=== PATIENT | female | born 1990 | race Caucasian/White ===

== ENCOUNTER 2016-11-09 21:31 | Emergency (ER) | payer SELFPAY ==
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
[2016-11-09 23:17] VITALS: BP 118/81
--- NOTE | 2016-11-10 11:24 | CR ---
EXAM DATE: 11/09/16 PATIENT'S AGE: 26 Patient: MICHA MANNING Facility: [place], [place] Site . Site : 1990 Study: XRay Knee [id number]/[id number] 10:29:33 PM Ordering Physician: Doctor Shoemaker Final Report: Indication: Pain. Grinding. No injury. Technique: Right knee three views. Comparison: None. Findings: No acute fracture or dislocation. No additional osseous abnormality. Soft tissues as imaged are unremarkable. Impression: No acute osseous abnormality. Dictated by Josh Otto MD @ 11/09/2016 10:49:31 PM Dictated by: Josh Otto MD @ 11/09/2016 22:49:41 (Electronic Signature) Report Signed by Proxy and Original Signed Document filed in the Medical Record. MTDD
== END 2016-11-09 23:12 | disposition home or self-care (01) ==
LOC: MW.ED 21:31
DX: M25.561 Pain in right knee (principal); B37.3 Candidiasis of vulva and vagina
CPT/HCPCS: 73562-26-RT; 73562-RT; 99283

== ENCOUNTER 2016-11-16 19:02 | Emergency (ER) | payer SELFPAY ==
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
[2016-11-16 20:17] VITALS: BP 137/71
== END 2016-11-16 20:17 | disposition home or self-care (01) ==
LOC: MW.ED 19:02
DX: N39.0 Urinary tract infection, site not specified (principal); J45.909 Unspecified asthma, uncomplicated; F17.210 Nicotine dependence, cigarettes, uncomplicated
CPT/HCPCS: 81001; 99283

== ENCOUNTER 2016-11-26 03:36 | Emergency (ER) | payer SELFPAY ==
[2016-11-26] MEDS ORDERED: Ketorolac 60 MG/2 ML SDV IM ONE (03:50)
[2016-11-26] MEDS ORDERED: Penicillin V Potassium 500 MG Tab PO STA (03:50)
[2016-11-26] MEDS ORDERED: ALPRAZolam 0.25 MG Tab PO ONE (03:50)
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
[2016-11-26 04:27] VITALS: BP 131/84
== END 2016-11-26 04:27 | disposition home or self-care (01) ==
LOC: MW.ED 03:36
DX: J02.0 Streptococcal pharyngitis (principal); F41.9 Anxiety disorder, unspecified; J45.909 Unspecified asthma, uncomplicated; F17.210 Nicotine dependence, cigarettes, uncomplicated
CPT/HCPCS: 99282; A9270; J1885; 99283

== ENCOUNTER 2016-12-30 14:37 | Emergency (ER) | payer SELFPAY ==
[2016-12-30] MEDS ORDERED: Sodium Chloride 0.9% 10 ML Syringe FLUSH PRN (15:23)
[2016-12-30] MEDS ORDERED: Sodium Chloride 0.9% 2.5 ML Syringe FLUSH PRN (15:23)
[2016-12-30] MEDS ORDERED: Albuterol/Ipratropium 3.0-0.5 MG/3 ML Neb Soln NEB ONE ×2 (15:24→15:49)
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
[2016-12-30 16:10] LABS: CHLORIDE,CL 108 mmol/L (98-110); SODIUM,NA 141 mmol/L (136-146)
--- NOTE | 2016-12-30 16:19 | CR ---
EXAMINATION: Two-view chest (PA and Lateral views). HISTORY: Shortness of breath. FINDINGS: The trachea is midline. The cardiomediastinal silhouette is within normal limits. No pulmonary infil trates, effusions or pneumothorax. Osseous structures appear unremarkable. IMPRESSION: No acute cardiopulmonary process.
[2016-12-30] MEDS ORDERED: prednisoLONE Soln 15 MG/5 ML UD Cup PO ONE (16:22)
[2016-12-30] MEDS ORDERED: cefTRIAXone 1 GM in Premix Bag 1 BAG IV ONE (16:24)
[2016-12-30] MEDS ORDERED: cefTRIAXone 1,000 MG in Lidocaine 1% 4 ML IM ONE (16:27)
[2016-12-30 17:24] VITALS: BP 117/75
== END 2016-12-30 17:15 | disposition home or self-care (01) ==
LOC: MW.ED 14:37
DX: J18.9 Pneumonia, unspecified organism (principal); J45.909 Unspecified asthma, uncomplicated; F17.210 Nicotine dependence, cigarettes, uncomplicated
CPT/HCPCS: 36415; 71020; 80053; 81025; 85025; 87081; 87880; 94640; 94664; 96372; 99284; A9270; J0696

== ENCOUNTER 2017-01-02 18:55 | Emergency (ER) | payer SELFPAY ==
[2017-01-02] MEDS ORDERED: Sodium Chloride 0.9% 2.5 ML Syringe FLUSH PRN (19:15)
[2017-01-02] MEDS ORDERED: Sodium Chloride 0.9% 10 ML Syringe FLUSH PRN (19:15)
[2017-01-02] MEDS ORDERED: Sodium Chloride 0.9% 1,000 ML IV SCH (19:30)
[2017-01-02 19:54] LABS: CHLORIDE,CL 103 mmol/L (98-110); SODIUM,NA 137 mmol/L (136-146)
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
[2017-01-02 21:20] VITALS: BP 130/90
--- NOTE | 2017-01-04 10:56 | CT ---
EXAM DATE: 01/02/17 PATIENT'S AGE: 26 Patient: MICHA MANNING Facility: [place], [place] Site . Site : 1990 Study: CT Head wo cont [id number]/10/2017 8:28:16 PM Ordering Physician: Doctor Shoemaker Final Report: INDICATION: Pain and dizziness TECHNIQUE: CT head without contrast. COMPARISON: None. FINDINGS: CSF spaces: Within normal limits for age. Brain parenchyma: The balderas-white differentiation is normal. No sign of mass, hemorrhage, or midline shift. Skull base and calvarium: Retention cyst is present in the right maxillary sinus. Remainder of the paranasal sinuses are clear. The visualized orbits are grossly unremarkable. No skull fractures. IMPRESSION: Unremarkable noncontrast head CT. Dictated by Wilian Goff MD @ 01/02/2017 9:08:41 PM Dictated by: Wilian Goff MD @ 01/02/2017 21:08:46 (Electronic Signature) Report Signed by Proxy. DORYS
--- NOTE | 2017-01-04 10:56 | CR ---
EXAM DATE: 01/02/17 PATIENT'S AGE: 26 Patient: MICHA MANNING Facility: [place], [place] Site . Site : 1992 Study: XRay Chest [id number]/10/2017 8:17:34 PM Ordering Physician: Doctor Shoemaker Final Report: INDICATION: Cough and dizziness. Elevated white blood cell count. TECHNIQUE: Chest 2 views. COMPARISON: July 26, 2016. FINDINGS: CARDIOVASCULATURE AND MEDIASTINUM: Heart size and vasculature are normal in caliber and appearance. Mediastinum is within normal limits. LUNGS AND PLEURAL SPACES: Lungs are clear. No sign of infiltrate or mass. No sign of pleural effusion. No pneumothorax. BONES AND SOFT TISSUES: No significant findings. IMPRESSION: Negative chest. No sign of pneumonia. Dictated by Wilian Goff MD @ 01/02/2017 9:01:01 PM Dictated by: Wilian Goff MD @ 01/02/2017 21:01:14 (Electronic Signature) Report Signed by Proxy. DORYS
== END 2017-01-02 21:29 | disposition home or self-care (01) ==
LOC: MW.ED 18:55
DX: J40 Bronchitis, not specified as acute or chronic (principal); F17.210 Nicotine dependence, cigarettes, uncomplicated; Z98.890 Other specified postprocedural states; Z79.899 Other long term (current) drug therapy
CPT/HCPCS: 70450; 71020; 80053; 80305; 81001; 83615; 85025; 87804; 93005; 96360; 99285; J7040; 99284

== ENCOUNTER 2017-03-06 13:16 | Emergency (ER) | payer SELFPAY ==
[2017-03-06] MEDS ORDERED: Ketorolac 60 MG/2 ML SDV IM ONE (14:14)
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
[2017-03-06 15:14] VITALS: BP 135/68
== END 2017-03-06 15:08 | disposition home or self-care (01) ==
LOC: MW.ED 13:16
DX: M25.561 Pain in right knee (principal); J45.909 Unspecified asthma, uncomplicated; F17.210 Nicotine dependence, cigarettes, uncomplicated
CPT/HCPCS: 96372; 99283; J1885